=== PATIENT | male | born 1960 | race Caucasian/White ===

== ENCOUNTER 2019-05-07 05:15 | Inpatient (IN) ==
[2019-05-07] MEDS ORDERED: LR 1,000 ML ONE ×2 (05:41→09:44)
[2019-05-07] MEDS ORDERED: KEFZOL 1 GM/D5W 1 GM/50 ML IVPB ONE (05:41)
[2019-05-07] MEDS ORDERED: VALIUM ONE (06:26)
[2019-05-07] MEDS ORDERED: NITROGLYCERIN 50 MG/D5W 50 MG/250 ML IV.SOLN ONE (06:33)
[2019-05-07] MEDS ORDERED: BRIDION ONE (06:33)
[2019-05-07] MEDS ORDERED: XYLOCAINE 1% ONE (06:35)
[2019-05-07] MEDS ORDERED: NS 1,000 ML ONE (06:35)
[2019-05-07] MEDS ORDERED: HEPARIN ONE (06:35)
[2019-05-07] MEDS ORDERED: MARCAINE 0.25% PF/EPI 1:200,000 ONE (06:35)
[2019-05-07] MEDS ORDERED: KEFZOL ONE (06:36)
[2019-05-07] MEDS ORDERED: XYLOCAINE-MPF 2% ONE ×2 (06:47→07:49)
[2019-05-07] MEDS ORDERED: DIPRIVAN 1% ONE (06:47)
[2019-05-07] MEDS ORDERED: QUELICIN (DOSE) ONE (06:47)
[2019-05-07] MEDS ORDERED: ZOFRAN ONE (07:07)
[2019-05-07] MEDS ORDERED: OFIRMEV 1000 MG/ISOTONIC SOLN 1,000 MG/100 ML BOTTLE ONE (07:07)
[2019-05-07] MEDS ORDERED: DECADRON ONE (07:07)
[2019-05-07] MEDS ORDERED: ZEMURON ONE (07:09)
[2019-05-07] MEDS ORDERED: NS 500 ML ONE (07:09)
[2019-05-07] MEDS ORDERED: RECOTHROM ONE (07:10)
[2019-05-07] MEDS ORDERED: HEPARIN (DOSE) ONE (07:21)
[2019-05-07] MEDS ORDERED: NEO-SYNEPHRINE ONE (08:08)
[2019-05-07] MEDS ORDERED: ZOFRAN IV PRN (10:15)
[2019-05-07] MEDS ORDERED: ACTOS PO SCH (10:15)
[2019-05-07] MEDS ORDERED: ULTRAM PO PRN (10:15)
--- NOTE | 2019-05-07 10:18 | OPERATIVE NOTE ---
PROCEDURE DATE: 05/06/2019 PROCEDURE PERFORMED: Right carotid endarterectomy with patch angioplasty. SURGEON: Colin Barbosa MD. USER EXPERIENCE ARCHITECT: Peewee Jensen RN. PREOPERATIVE DIAGNOSIS: High-grade right internal carotid stenosis. POSTOPERATIVE DIAGNOSIS: High-grade right internal carotid stenosis. DESCRIPTION OF PROCEDURE: After satisfactory endotracheal anesthesia was achieved, the patient was placed in a gentle reverse Trendelenburg position and his head was turned to the left slightly. The right side of the neck and upper anterior chest were prepped and draped in a sterile fashion. We marked the skin along the anterior border of the sternocleidomastoid muscle. We anesthetized the skin with 0.25 Marcaine with epinephrine. We then incised the skin along the anterior border of the sternocleidomastoid muscle. We achieved satisfactory hemostasis electrocautery. We carried our incision through the platysma. We then dissected along the anterior border of the sternocleidomastoid muscle. A Gelpi retractor was placed. 5000 units of heparin were given. We dissected down to the carotid bifurcation and dissected caudad crossing anterior facial vein, this was ligated and divided. We surrounded the common carotid with an umbilical tape. We then dissected out the external carotid and surrounded it with a large vessel loop. We dissected along the internal carotid surrounded it with a small vessel loop. The heparin circulated for more than 5 minutes. Under 2 1/2 loupe magnification we then clamped off the branch vessels with the respective vessel loops and used a profunda clamp on the internal. We then clamped the common with a DeBakey clamp. I used an 11 blade to incise the common and then extended the incision through the plaque into the internal. There was a very high-grade stenosis in the proximal internal. We then proceeded to pass a right angle around the plaque in the common and transected. We used a Beecher tool to remove the plaque 1st in the external then from the internal. This took about 3 minutes. I then placed the shunt in the smaller end going in the internal larger and going in the common. We then irrigated out the endarterectomized vessel with heparinized saline, removed all leaflets we could identify. We did tack the intima with two 7-0 Prolene stitches. We obtained a 1 x 6 bovine patch and then sutured it to the artery using a running 6-0 Prolene. As we neared completion of the patch angioplasty we were removed the internal and back bleeding from the internal was very good. We then removed the common and flushed the vessel. We back bled the external as well. We then clamped off the vessels again. We finished the patch angioplasty. We then held the internal occluded, opened the external then the common and then opened the internal after 5 seconds. The bleeding point distally required two 6-0 Prolene [id number] stitches with transient occlusion of the vessel. After those stitches were placed we then once again allowed flow and a good pulse was noted within the internal. The suture line was hemostatic. We irrigated out the wound with Kefzol-impregnated saline. I might add that the blood pressure was kept between 130 and 150 systolic throughout the case. We then placed a Flakito drain within the wound and secured it to the skin with a 2-0 silk. We then closed the platysma with a running 3-0 Polysorb, once again injected local anesthesia along the subcutaneous tissue and dermis. We then closed the skin with a 4-0 Polysorb subcuticular stitch. Telfa and sterile OpSite was applied. He tolerated it well and went to the recovery room in satisfactory condition and was moving all extremities. cc: Colin Barbosa MD
[2019-05-07] MEDS ORDERED: NEO-SYNEPHRINE 50 MG in NS 250 ML IV SCH (11:00)
[2019-05-07] MEDS: HYGROTON PO SCH (11:04)
[2019-05-07] MEDS: OFIRMEV 1000 MG/ISOTONIC SOLN 1,000 MG/100 ML BOTTLE IV SCH ×3 (11:11→21:55)
[2019-05-07] MEDS: SINGULAIR PO SCH (11:12)
[2019-05-07] MEDS: COZAAR PO SCH (11:12)
[2019-05-07] MEDS: CRESTOR PO SCH (11:12)
[2019-05-07] MEDS: ASPIRIN PO SCH (11:13)
[2019-05-07] MEDS: TIMOPTIC 0.5% OPH SOLUTION RIGHT EYE SCH ×2 (11:13→21:01)
[2019-05-07] MEDS: ZETIA PO SCH (11:13)
[2019-05-07] MEDS: LR 1,000 ML IV SCH ×2 (11:21→21:03)
[2019-05-07] MEDS: KEFZOL 1 GM/D5W 1 GM/50 ML IVPB IV SCH ×2 (13:34→21:02)
[2019-05-07] MEDS: GLUCOPHAGE PO SCH (16:38)
--- NOTE | 2019-05-07 20:00 | GENERAL SURGERY PROGRESS NOTE ---
DATE: 05/07/2019 TIME: 5:12 p.m. SUBJECTIVE: He is doing generally well. His trachea is in the midline. He is neurologically fine. There is no significant drainage. He has required some Arpit-Synephrine to maintain his blood pressure in the 130 range. His art-line is dampened now so I will remove his art-line. We will give him some solid food as he has no evidence of neck swelling. I am pleased with his progress as is he. cc: Colin Barbosa MD
[2019-05-07] MEDS ORDERED: ATIVAN PO SCH (21:00)
[2019-05-08] MEDS: OFIRMEV 1000 MG/ISOTONIC SOLN 1,000 MG/100 ML BOTTLE IV SCH (03:40)
[2019-05-08] MEDS: TIMOPTIC 0.5% OPH SOLUTION RIGHT EYE SCH (08:03)
[2019-05-08] MEDS: ASPIRIN PO SCH (08:05)
[2019-05-08] MEDS: LR 1,000 ML IV SCH (08:05)
[2019-05-08] MEDS: GLUCOPHAGE PO SCH ×2 (08:05→16:27)
[2019-05-08] MEDS: ZETIA PO SCH (08:05)
[2019-05-08] MEDS: SINGULAIR PO SCH (08:05)
[2019-05-08] MEDS: COZAAR PO SCH (08:05)
[2019-05-08] MEDS: CRESTOR PO SCH (08:05)
[2019-05-08] MEDS: HYGROTON PO SCH (08:06)
[2019-05-08] MEDS ORDERED: SALINE LOCK IV FLUID XX ONE (08:59)
[2019-05-08] MEDS ORDERED: ACTOS PO SCH (09:00)
--- NOTE | 2019-05-08 09:20 | GENERAL SURGERY PROGRESS NOTE ---
DATE: 05/08/2019 SUBJECTIVE: Mr. Chapa is doing well. He is awake and alert. Trachea is in the midline. No significant swelling. Neurologically, he is fine. PLAN: Remove his drain. Will advance his diet. Will transfer him out to a regular room. Hopefully, will get him home within 24 hours. cc: Colin Barbosa MD
[2019-05-08 16:24] VITALS: BP 114/68
--- NOTE | 2019-05-08 18:51 | GENERAL SURGERY PROGRESS NOTE ---
DATE: 05/08/2019 It is 4:40 in afternoon. He is doing well. His trachea is in the midline. He has taken food. His blood pressure is fine. Neurologically, he is fine. We will discharge him home today. We discussed activity. He will resume his usual medications. He is to stay on aspirin and well as cilostazol. He will return to see me in the office in a week. cc: Colin Barbosa MD
== END 2019-05-08 17:17 | disposition home or self-care (01) | DRG 39 ==
LOC: SURHOLD 05:15 → ICU 10:30
PROVIDERS: ADMIT Surgery; ATTEND Surgery